=== PATIENT | female | born 2000 | race Caucasian/White ===

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

== ENCOUNTER 2024-01-07 15:40 | Emergency (ER) | payer SELFPAY ==
[~2024-01-07] VITALS: Ht 152.4 cm; Wt 77.3 kg
[~2024-01-07 15:40] MED LIST changes: -ARIP2 PO; +ARIP2TAB27 PO; +FLUO-177 PO; -FLUO-191 PO; -LURA40 PO; +LURA40TA2 PO
[2024-01-07 15:59] VITALS: BP 120/74; PULSE 94; RESP 18; TEMP 98; O2SAT 99
[2024-01-07] MEDS ORDERED: BACL10TA PO (18:49)
[2024-01-07] MEDS ORDERED: IBUP-1492 PO (18:50)
[2024-01-07] MEDS ORDERED: LIDO700A15 TP (18:51)
[2024-01-07] MEDS: BACLOFEN 10 MG TABLET PO ONE (19:23)
[2024-01-07] MEDS: KETOROLAC TROMETHAMINE 30 MG/ML VIAL IM ONE (19:23)
[2024-01-07] MEDS: LIDOCAINE 5% TRANSDERMAL PATCH TD ONE (19:24)
== END 2024-01-07 19:28 | disposition home or self-care (01) ==
LOC: EMS 15:43
DX: M79.18 Myalgia, other site (principal); V43.52XA Car driver injured in collision with other type car in traffic accident, initial encounter; Y93.89 Activity, other specified; Y92.410 Unspecified street and highway as the place of occurrence of the external cause; Y99.8 Other external cause status
CPT/HCPCS: 99283; 96372; J1885

== ENCOUNTER 2024-01-16 11:04 | Emergency (ER) | payer SELFPAY ==
[~2024-01-16] VITALS: Ht 152.4 cm; Wt 77.3 kg
[~2024-01-16 11:04] MED LIST changes: -ARIP2TAB27 PO; +BACL10TA PO; -FLUO-177 PO; +IBUP-1492 PO; +LIDO700A15 TP; -LURA40TA2 PO
[2024-01-16 11:14] VITALS: BP 100/68; PULSE 90; RESP 18; TEMP 98; O2SAT 99
[2024-01-16] MEDS: KETOROLAC TROMETHAMINE 30 MG/ML VIAL IM ONE (15:10)
== END 2024-01-16 17:00 | disposition home or self-care (01) ==
LOC: EMS 11:04
DX: R07.89 Other chest pain (principal); F41.9 Anxiety disorder, unspecified; F32.A Depression, unspecified; V89.2XXA Person injured in unspecified motor-vehicle accident, traffic, initial encounter; Y93.89 Activity, other specified; Y92.410 Unspecified street and highway as the place of occurrence of the external cause; Y99.8 Other external cause status
CPT/HCPCS: 99283; 71045; 96372; J1885